=== PATIENT | female | born 1995 | race Caucasian/White ===

== ENCOUNTER 2017-02-12 10:28 | Emergency (ER) | payer MEDICAID ==
[~2017-02-12] VITALS: Ht 165.1 cm; Wt 81.6 kg
[2017-02-12 10:39] VITALS: BP_SYST 138
[2017-02-12] MEDS ORDERED: IBUPROFEN 800 MG TABLET PO ONE (12:15)
== END 2017-02-12 12:33 | disposition home or self-care (01) ==
LOC: SED 10:31
DX: S16.1XXA Strain of muscle, fascia and tendon at neck level, initial encounter (principal); X58.XXXA Exposure to other specified factors, initial encounter; Y93.89 Activity, other specified; Y92.89 Other specified places as the place of occurrence of the external cause; Y99.8 Other external cause status
CPT/HCPCS: 99283